=== PATIENT | female | born 1975 | race Caucasian/White ===

== ENCOUNTER 2024-05-20 10:00 | Outpatient (CLI) | payer MEDICAID, SELFPAY ==
[2024-05-20 16:48] LABS: HCG Qualitative,Urine Negative
[2024-06-13 16:37] LABS: HCG Qualitative,Urine Negative
--- NOTE | 2024-06-14 10:00 | XR_ITS ---
Examination: MRI of brain without intravenous contrast. MRI brain with intravenous contrast. Date and time of exam:June 14, 2024 1029 hours INDICATIONS: Acute episode of headaches head pressure blurred vision dizziness April 14, 2024 Technique: Multiple axial and sagittal images of the brain to been obtained. Siemens high-resolution 1.52 Katrin short bore scanner utilized. Sagittal sections, T1 weighted images, TR 500, TE 14, are performed. Axial sections proton-density and T2-weighted images have been obtained. Inversion recovery axial images, TR 9260, TE 111, TR 2500. Diffusion weighted images, axial sections, TR 4800, TE 128, B value 1000. Axial sections, ADC map, TR 4800, TE 128. Axial and coronal images were also obtained post 17 cc gadolinium administered intravenously. Findings:: Enlargement of the sella turcica is not present. The optic chiasm and infundibular stalk are not remarkable. There is no localized enlargement of the medulla or bonnie. Fourth ventricle and cerebellar tonsils appear normal in position. No subacute area of hemorrhage density is seen. Fourth ventricle is midline. Mass in the cerebellopontine angle region is not evident. 7th and 8th nerve complexes exhibit symmetry Globes are symmetrical Orbital musculature including medial lateral rectus muscles do not exhibit abnormality Increased white matter signal is not seen Effacement of the cortical sulcal markings is not identified. Mass effect upon the ventricular system is not identified. Diffusion-weighted images demonstrate no focus of restricted diffusion Contrast images demonstrate no abnormal enhancement Impression: Negative for acute hemorrhage, mass effect or midline shift No acute infarct No MR findings diagnostic for demyelinating disease No abnormal enhancing cerebellar or cerebral lesions
== END 2024-05-20 11:30 | disposition home or self-care (01) ==
LOC: SMRI 06-15 12:43
PROVIDERS: PCP Family Medicine; Referring Provider Family Medicine; Visit Provider Family Medicine
DX: R42 Dizziness and giddiness (principal); Z32.00 Encounter for pregnancy test, result unknown
CPT/HCPCS: 70553; 81025; A9579

== ENCOUNTER 2024-10-26 16:02 | Emergency (ER) | payer MEDICAID, SELFPAY ==
[2024-10-26 16:18] VITALS: BP 118/79; PULSE 87; RESP 20; TEMP 36.8; O2SAT 98
--- NOTE | 2024-10-26 16:20 | XR_ITS ---
Examination: Tibia-Fibula, right , 2 views Technique: Tibia-fibula AP lateral 2 views Date and time of exam: October 26, 2024, 1624 hours INDICATIONS: Twisting injury to the lower leg today, lower leg pain. FINDINGS: No acute fracture. No dislocation. Lateral malleolar soft tissue swelling. IMPRESSION: No acute fracture.
--- NOTE | 2024-10-26 16:20 | XR_ITS ---
EXAMINATION: Ankle, right 3 views . Technique: Ankle AP, oblique, lateral 3 views Date and time of exam: October 26, 2024, 1624 hours INDICATIONS: Twisting injury to the ankle today, ankle pain. FINDINGS: Lateral malleolar soft tissue swelling. No fracture or dislocation. No foreign body. IMPRESSION: No fracture or dislocation.
--- NOTE | 2024-10-26 16:20 | XR_ITS ---
Examination: Foot, right, 3 views Technique: AP, oblique, lateral views foot, 3 views Date and time of exam: October 26, 2024, 1624 hours INDICATIONS: Twisting injury to the foot today, foot pain. FINDINGS: No acute fracture. No dislocation. No foreign body Old deformity distal fifth metatarsal IMPRESSION: No acute fracture
--- NOTE | 2024-10-26 16:23 | EDNOTE_ITS ---
<Statement entered by Tonie Dallas MD - 10/27/24 06:08> As co-signing physician, I was present and available for consult prn. I concur with the plan and care as documented by the midlevel provider. Lower Extremity Injury RME/HPI General Chief Complaint: Ankle/Foot Injury Stated Complaint: RIGHT ANKLE INJURY STEPPING OFF TRAILER Time Seen by Provider: 10/26/24 16:09 Source: patient Arrival date/time: 10/26/24 16:02 49-year-old female with no known medical history presents to the emergency room with a chief complaint of tenderness swelling and bruising to her right ankle after an injury stepping off a trailer that occurred yesterday afternoon. Mode of arrival: ambulatory Limitations: no limitations Related Data Home Medications ?Medication ?Instructions ?Recorded ?Confirmed Unobtainable 09/11/18 09/11/18 Allergies Allergy/AdvReac Type Severity Reaction Status Date / Time No Known Allergies Allergy Verified 10/26/24 16:07 Review of Systems Review of Systems Systems Reviewed: All systems reviewed, normal except as documented Constitutional Constitutional: Reports system reviewed and no additional complaints, except as documented, Denies fatigue, Denies fever(s), Denies headache(s) and Denies weakness Eyes Eyes: Reports system reviewed and no additional complaints, except as documented, Denies blurry vision and Denies change in vision ENT Ears, Nose, Mouth, and Throat: Reports system reviewed and no additional complaints, except as documented, Denies otalgia, Denies headache(s), Denies nasal congestion, Denies throat swelling and Denies vertigo Cardiovascular Cardiovascular: Reports system reviewed and no additional complaints, except as documented, Denies chest pain, Denies dyspnea and Denies dyspnea on exertion Respiratory Respiratory: Reports system reviewed and no additional complaints, except as documented, Denies chest congestion, Denies cough, Denies dyspnea, Denies dyspnea on exertion and Denies wheezing Gastrointestinal Gastrointestinal: Reports system reviewed and no additional complaints, except as documented, Denies abdominal pain, Denies cramping, Denies nausea and Denies vomiting Genitourinary Genitourinary: Reports system reviewed and no additional complaints, except as documented Musculoskeletal Musculoskeletal: Reports system reviewed and no additional complaints, except as documented, Reports arthralgias, Denies back pain, Reports joint swelling and Reports limited range of motion Integumentary/Breasts Skin/Breast: Reports system reviewed and no additional complaints, except as documented and Denies wounds Neurologic Neurologic: Reports system reviewed and no additional complaints, except as documented, Denies confusion, Denies headache(s), Denies lack of coordination, Denies vertigo and Denies weakness Psychiatric Psychiatric: Reports system reviewed and no additional complaints, except as documented, Denies anxiety, Denies confusion, Denies depression, Denies paranoia, Denies suicidal ideation and Denies tactile hallucinations Endocrine Endocrine: Reports system reviewed and no additional complaints, except as documented and Denies fatigue Hematologic/Lymphatic Hematologic/Lymphatic: Reports system reviewed and no additional complaints, except as documented and Denies lymphadenopathy Allergic/Immunologic Allergic/Immunologic: Reports system reviewed and no additional complaints, except as documented, Denies throat swelling, Denies urticaria and Denies wheezing Past Medical History Past Medical History CARDIAC: Negative Congestive Heart Failure RESPIRATORY: Negative Chronic Obstructive Pulmonary Disease (COPD) GENITOURINARY: Negative Renal Disease ENDOCRINE: Negative Diabetes Mellitus Type 1 or Diabetes Mellitus Type 2 PSYCHO/SOCIAL: Positive Schizophrenia and Recreational Drug Use Social History SMOKING STATUS: Never smoker SUBSTANCE USE: marijuana (When I can get my hands on) and amphetamines (When she can get her hands on the substance) ED Exam General Limitations: Present no limitations General appearance: Present alert and in no apparent distress Head Head exam: Present atraumatic Eye Eye exam: Present normal appearance, PERRL and EOMI ENT ENT exam: Present normal exam, normal oropharynx and mucous membranes moist Neck Neck exam: Present normal inspection, full ROM and trachea midline Chest Chest inspection: Present normal inspection and symmetric chest wall rise Respiratory Respiratory exam: Present normal lung sounds bilaterally Cardiovascular Cardiovascular exam: Present regular rate, normal rhythm and normal heart sounds Abdominal Exam Abdominal exam: Present soft and normal bowel sounds Extremities Exam Extremities exam: Present normal inspection and full ROM Expanded Lower Extremity Exam Hip/Pelvis exam: Present normal inspection Upper leg exam: Present normal inspection Knee exam: Present normal inspection Lower leg exam: Present normal inspection Ankle exam: Present tenderness and swelling Foot/toe exam: Present tenderness and swelling Gait: observed and limited by pain Back Exam Back exam: Present normal inspection and full ROM Neurological Exam Neurological exam: Present alert, oriented X3 and CN II-XII intact Psychiatric Psychiatric exam: Present normal affect and normal mood Skin Skin exam: Present warm, dry, intact and normal color Course Quality Measures none Orders Category Date Time Status Crutches .NOW Care 10/26/24 17:26 Ordered billy wrap [Splint / Immobilizer] STAT Care 10/26/24 17:26 Ordered XR ankle comp RT min 3V Stat Exams 10/26/24 16:20 Completed XR foot comp RT min 3V Stat Exams 10/26/24 16:20 Completed XR tibia fibula RT 2V Stat Exams 10/26/24 16:20 Completed Vital Signs Vital signs: Vital Signs Temperature 98.2 F 10/26/24 16:18 Pulse Rate 87 10/26/24 16:18 Respiratory Rate 20 10/26/24 16:18 Blood Pressure 118/79 10/26/24 16:18 Pulse Oximetry (%) 98 10/26/24 16:18 Oxygen Delivery Method Room Air 10/26/24 16:18 Extremity Injury, Lower MDM Narrative MDM Narrative:: 49-year-old female with no known medical history presents to the emergency room with a chief complaint of tenderness swelling and bruising to her right ankle after an injury stepping off a trailer that occurred yesterday afternoon. Patient is hemodynamically stable and in no apparent distress Physical examination shows tenderness and pain to the patient's right ankle right tib-fib as well as the right foot. There is swelling and bruising to the ankle area. X-ray of the ankle tib-fib and foot were completed and were all negative for any acute fractures or dislocations Patient was given crutches and wrapped with an Billy wrap Patient was discharged and educated to follow-up with primary care provider in the next 24 to 48 hours and return to the emergency room for any evidence of worsening signs or symptoms Patient data External records reviewed:: [facility] previous records Clinical information provided by:: patient Social determinants that could affect healthcare access:: none Patient has the following chronic illnesses:: No chronic illness How is presenting disease/condition affected by chronic disease/condition?: no chronic disease Evaluation data The following diagnostics were reviewed and interpreted by me:: lab results and radiology exam(s) Lab and/or radiology exams considered but not ordered:: Labs radiology exams considered and ordered Interpretation Summary: Ankle [id number]: Lateral malleolar soft tissue swelling. No fracture or dislocation. No foreign body. IMPRESSION: No fracture or dislocation. Foot [id number]: No acute fracture. No dislocation. No foreign body Old deformity distal fifth metatarsal IMPRESSION: No acute fracture Medications / Prescriptions Medications or Prescriptions considered but not ordered:: No medication given Medication administrations:: No medication given Consultations Consultation(s) initiated? (list below): No Diagnosis Extremity Injury, Lower Differential Diagnosis: ankle sprain and strain and ankle fracture Most likely diagnosis given after review of the tests above:: Ankle sprain and strain Admission Indicated Admission indicated?: not indicated Admission Request Was there a request for admission?: No Disposition Plan Disposition Plan: Discharge Discharge Attestation Discharge Attestation: The patient and all family members were given an opportunity to ask questions and understood the discharge instructions. Discharge instructions specifically effects, indications for sooner follow up or return to the emergency department, and the expected course of current diagnosis. Patient condition: Stable Discharge Plan Plan Patient Disposition: HOME (Self Care) Discharge Disposition comment: Stable Prescriptions/Referrals Prescriptions/Med Rec: No Action Unobtainable Referrals: No Primary/Family,Physician [Primary Care Provider] - In 1 week Problem List Clinical Impression: Ankle sprain and strain Patient/Caregiver Discharge Instructions Additional Instructions: Please follow-up with your primary care provider in the next 24 to 48 hours X-ray of your ankle and foot were completed and were negative for any acute fracture or dislocation. For any evidence of worsening signs or symptoms return to the emergency room immediately Print Language: Bulgarian Stand Alone Forms: Nyla Award Info., Work/School Release, Patient Portal Info Letter NISHANT/MAHAMED Supervising Physician NISHANT/MAHAMED Supervising Physician: Dr. DALLAS
== END 2024-10-26 18:24 | disposition home or self-care (01) ==
PROVIDERS: Emergency Provider Emergency Medicine
DX: S93.401A Sprain of unspecified ligament of right ankle, initial encounter (principal); X58.XXXA Exposure to other specified factors, initial encounter
CPT/HCPCS: 73590; 73610; 73630; 99283

== ENCOUNTER 2025-01-11 09:31 | Emergency (ER) | payer MEDICAID, SELFPAY ==
[2025-01-11 09:32] VITALS: BMI 30.7
[2025-01-11 09:41] VITALS: BP 147/84; PULSE 63; RESP 18; TEMP 36.8; O2SAT 99
--- NOTE | 2025-01-11 09:55 | PD.EDRME ---
Rapid Medical Screening Exam RME Arrival date/time: 01/11/25 09:31 Chief Complaint: Dizziness Vital signs: Vital Signs Temperature 98.3 F 01/11/25 09:41 Pulse Rate 63 01/11/25 09:41 Respiratory Rate 18 01/11/25 09:41 Blood Pressure 147/84 H 01/11/25 09:41 Pulse Oximetry (%) 99 01/11/25 09:41 Oxygen Delivery Method Room Air 01/11/25 09:41 Pulse ox is 99% room air Vital signs reviewed by provider: Yes RME Narrative: 49-year-old female presents to the ED with complaint of swollen ankles left and right as well as bending over and having a syncopal episode. Patient tells me she has had this happen 3-4 times and she was trying to figure out why she was developing shortness of breath and having a fainting spell.
--- NOTE | 2025-01-11 09:57 | XR_ITS ---
Examination: PA lateral chest 2 views TECHNIQUE: Upright PA lateral chest 2 views Date and time: January 11, 2025 1001 hours Comparison November 04, 2021 INDICATIONS: Chest pain dizziness today. FINDINGS: Normal heart size Lungs are clear. The osseous structures are intact IMPRESSION: No active disease
--- NOTE | 2025-01-11 09:57 | EKG_ITS ---
[facility] Test Date: 2025-01-11 Pat Name: JONA MERCEDES Department: Room: - Gender: Female Acid Maker: : 1975 Requested By: Estuardo Camarena Order Number: [id number] Reading MD: Estuardo Camarena Measurements Intervals [place] Rate: 50 P: TN: QRS: -9 QRSD: 85 T: 24 QT: 424 QTc: 390 Interpretive Statements SINUS BRADYCARDIA WITH 2ND DEGREE AV BLOCK, 2:1 OR MOBITZ TYPE II LOW QRS VOLTAGE IN PRECORDIAL LEADS [QRS DEFLECTION < 1.0 mV IN CHEST LEADS] CRITICAL TEST RESULT No previous ECG available for comparison /store/[email or web address]/[id number].pdf
--- NOTE | 2025-01-11 10:14 | EDNOTE_ITS ---
ED General RME/HPI General Chief complaint: Dizziness Stated complaint: DIZZY, SWOLLEN LEGS Time Seen by Provider: 01/11/25 10:12 Arrival date/time: 01/11/25 09:31 RME / HPI RME / HPI narrative: 49-year-old female presents to the ED with complaint of swollen ankles left and right as well as bending over and having a syncopal episode. Patient tells me she has had this happen 3-4 times and she was trying to figure out why she was developing shortness of breath and having a fainting spell. DR. MATOS MAIN ED EVALUATION 49 year old female presents to the ED for evaluation of dizziness today. States while looking for something in her room she felt slightly short of breath and as she bent down to look under her bed, she felt suddenly felt dizzy and blacked out . Also states she in the last 2-3 days ago she has felt short of breath with chest pressure and bilateral lower extremity swelling with pain (L>R). Reportedly consulted with PCP 2 days ago and had an EKG performed in office as well as labs with follow up appointment scheduled today. Denies any recent travel or prolonged immobilization. Denies fevers, chills, abdominal pain, n/v. Family hx: Cystic fibrosis, mother and father passed from heart related disease Related Data Previous Rx's ?Medication ?Instructions ?Recorded apixaban 5 mg (74 tabs) tablets in 5 mg PO BID #74 tab s 01/11/25 a dose pack (Eliquis DVT-PE Treat 30D Start) Allergies Allergy/AdvReac Type Severity Reaction Status Date / Time No Known Allergies Allergy Verified 01/11/25 09:34 Review of Systems Review of Systems Systems Reviewed: All systems reviewed, normal except as documented Past Medical History Past Medical History RESPIRATORY: Positive Asthma PSYCHO/SOCIAL: Positive Schizophrenia, Recreational Drug Use and Bipolar Disorder Social History SMOKING STATUS: Former smoker SUBSTANCE USE: marijuana (When I can get my hands on) and amphetamines (When she can get her hands on the substance) ED Exam Narrative Physical exam: Constitutional: Awake, alert, nontoxic, no acute distress HEENT: NC, AT, EOMI Neck: Supple CV: RRR, no m/r/g Lungs: CTAB, no w/r/r, no respiratory distress. Abd: Soft, NT, NT, no HSM noted to palpation Extremities: No deformities, 1=2+ pitting edema left lower extremity, pain to calf bilaterally Neuro: AAOx3, CN 2-12 GIBL, no acute neuro deficit noted. Skin: Warm, dry, intact Course Course Course Narrative: 1140h: Venous duplex results reviewed. Does appear to have bilateral DVTs. CT angio is pending to evaluate for presence of PE as well. Patient currently remains vitally stable, no hypoxia or tachycardia. PESI score low risk. Dose of apixaban [address] angio was negative for PE. Patient vitally stable, no hypoxia, no shortness of breath. Was given initial dose of apixaban here and prescription for home. Stable for discharge. Advised on outpatient follow-up with PCP. Quality Measures none Orders Category Date Time Status CT Screening NOW Care 01/11/25 10:22 Completed EKG (ED ONLY) *Do not use* NOW Care 01/11/25 09:57 Completed Insert IV NOW Care 01/11/25 10:[address] angio chest Stat Exams 01/11/25 10:22 Completed EKG (ED Only) Stat Exams 01/11/25 09:57 Draft US venous duplex LE BI Stat Exams 01/11/25 10:26 Completed XR chest 2V Stat Exams 01/11/25 09:57 Completed B-Type Natriuretic Peptide Stat Lab 01/11/25 10:10 Completed CBC Stat Lab 01/11/25 10:10 Completed Comprehensive Metabolic Panel Stat Lab 01/11/25 10:10 Completed Drug Screen,Urine Stat Lab 01/11/25 11:45 Completed HCG,Qualitative Serum Stat Lab 01/11/25 10:10 Completed LDH (Lactate Dehydrogenase) Stat Lab 01/11/25 10:10 Completed Magnesium Stat Lab 01/11/25 10:10 Completed Partial Thromboplastin Time Stat Lab 01/11/25 10:10 Completed Prothrombin Time with INR Stat Lab 01/11/25 10:10 Completed Troponin I Stat Lab 01/11/25 10:10 Completed Urinalysis Stat Lab 01/11/25 11:57 Completed Apixaban [Eliquis] Med 01/11/25 11:39 Discontinued 10 mg PO X1 ONE Vital Signs Vital signs: Vital Signs Temperature 98.3 F 01/11/25 09:41 Pulse Rate 63 01/11/25 09:41 Respiratory Rate 18 01/11/25 09:41 Blood Pressure 147/84 H 01/11/25 09:41 Pulse Oximetry (%) 99 01/11/25 09:41 Oxygen Delivery Method Room Air 01/11/25 09:41 Pulse ox is 99% on room air which is adequate. Critical Care Time Critical Care Time Critical Care Time: No Discharge Plan Plan Patient Disposition: HOME (Self Care) Patient condition on transfer: Stable Prescriptions/Referrals Prescriptions/Med Rec: [place] DVT-PE Treat 30D Start 5 mg (74 tabs) tablets,dose pack 5 mg PO BID Qty: 74 0RF Rx Instructions: Take 10mg (2 tab) twice daily for 7 days, then take 5mg (1 tab) twice daily thereafter. Referrals: Dante Bruce MD [Primary Care Provider] - In 1 week Problem List Clinical Impression: Acute bilateral deep vein thrombosis (DVT) of popliteal veins Patient/Caregiver Discharge Instructions Education Materials: Apixaban oral tablets, ED Deep Vein Thrombosis (DVT) Print Language: Grenadian Stand Alone Forms: Nyla Award Info., Patient Portal Info Letter MDM Narrative [facility] hospital course: IAlondra am scribing for and in the presence of Dr. Matos. Clinical Information Provided by none Medical Records Reviewed [facility] (I reviewed ED visit on 10/26/2024 ) Meds/Rx Considered, not Ordered None Labs/Rad/Tests considered, not Ordered None Chronic Illness/Social Conditions which may negatively complicate care or outcome(s)-explain: None or not appl icable EKG Interpretation EKG #1: Date/time of EK01/11/25 10:21 am EKG interpretation: Sinus bradycardia, rate 50, no STEMI Lab Interpretation Labs: see narrative above Imaging Radiology reports / interpretation(s): Ordering Physician: Estuardo Gr PA-C Date of Service: 01/11/25 Procedure(s): XR chest 2V Accession Number(s): [id number] cc: Dante Bruce MD; Shamar Lerner MD; Estuardo Gr PA-C~ Examination: PA lateral chest 2 views TECHNIQUE: Upright PA lateral chest 2 views Date and time: January 11, 2025 1001 hours Comparison November 04, 2021 INDICATIONS: Chest pain dizziness today. FINDINGS: Normal heart size Lungs are clear. The osseous structures are intact IMPRESSION: No active disease Dictated By: Shamar Lerner MD Signed By: <Electronically signed by Shamar Lerner MD in OV> 01/11/25 1100 Ordering Physician: Zora Matos MD Date of Service: 01/11/25 Procedure(s): US venous duplex LE BI Accession Number(s): [id number] cc: Dante rBuce MD; Shamar Lerner MD; Zora Matos MD~ Examination: Venous duplex lower extremity sonogram, bilateral. Date and time of exam: January 11, 2025 1052 hours INDICATIONS: Bilateral leg swelling and pain beginning 3 days ago Technique: Multiple sonographic images of the deep venous system have been obtained. B-mode/2-D grayscale imaging of vascular structures and Doppler spectral analysis (waveforms) and color performed Both legs are examined. Findings: Positive for nonocclusive thrombus involving the right and left popliteal and peroneal veins Remaining deep venous systems are open IMPRESSION: Positive for nonocclusive acute thrombus in the right and left popliteal and peroneal veins Dictated By: Shamar Lerner MD Signed By: <Electronically signed by Shamar Lerner MD in OV> 01/11/25 1133 Ordering Physician: Zora Matos MD Date of Service: 01/11/25 Procedure(s): CT angio chest Accession Number(s): [id number] cc: Dante Bruce MD; Shamar Lerner MD; Zora Matos MD~ Examination: CTA chest with intravenous contrast 2-D reconstructions 3-D reconstructions, vascular Date and time of exam: January 11, 2025 1225 hours INDICATIONS: Onset chest pain shortness of breath today CTDI: vol (mGy) 18.7 DLP: (mGycm) 314 Technique: Multiple axial sections of the thorax have been obtained. 3 mm slice thickness, from below the hemidiaphragms to above the apices of the lungs. Mediastinal and lung density settings have been obtained. 2-D sagittal and coronal reconstructions. 3-D angiographic renderings, 3-D volume renderings, 3D post processing, vascular maximum intensity projections obtained. Contrast administered is 100 cc Isovue-370. Low dose protocols were performed. One or more of the following dose reduction techniques were used; automated exposure control, adjustment of the mA and/or KV according to patient size, use of iterative reconstruction technique. Findings: No thoracic aortic aneurysm dilatation or dissection Pulmonary artery segments are not enlarged No pulmonary artery emboli No pneumonia or pulmonary edema or pleural disease No visualized liver or splenic lesion No gallstones noted Kidneys partially visualized no hydronephrosis Chronic osteoporotic compression T10 IMPRESSION: Negative for pulmonary artery emboli No pneumonia pulmonary edema or pleural disease Dictated By: Shamar Lerner MD Signed By: <Electronically signed by Shamar Lerner MD in OV> 01/11/25 1248 Medication Administration(s) Medication Administration History Discontinued Medications Apixaban (Apixaban 2.5 Mg Tablet) 10 mg PO X1 ONE Stop: 01/11/25 11:40 Last Admin: 01/11/25 11:56 Dose: 10 mg Documented By: VG See above Diagnosis Most likely dx, and/or detailed dx discussion: Acute bilateral DVT of popliteal veins Dispositon Disposition: Discharge Home
--- NOTE | 2025-01-11 10:22 | XR_ITS ---
Examination: CTA chest with intravenous contrast 2-D reconstructions 3-D reconstructions, vascular Date and time of exam: January 11, 2025 1225 hours INDICATIONS: Onset chest pain shortness of breath today CTDI: vol (mGy) 18.7 DLP: (mGycm) 314 Technique: Multiple axial sections of the thorax have been obtained. 3 mm slice thickness, from below the hemidiaphragms to above the apices of the lungs. Mediastinal and lung density settings have been obtained. 2-D sagittal and coronal reconstructions. 3-D angiographic renderings, 3-D volume renderings, 3D post processing, vascular maximum intensity projections obtained. Contrast administered is 100 cc Isovue-370. Low dose protocols were performed. One or more of the following dose reduction techniques were used; automated exposure control, adjustment of the mA and/or KV according to patient size, use of iterative reconstruction technique. Findings: No thoracic aortic aneurysm dilatation or dissection Pulmonary artery segments are not enlarged No pulmonary artery emboli No pneumonia or pulmonary edema or pleural disease No visualized liver or splenic lesion No gallstones noted Kidneys partially visualized no hydronephrosis Chronic osteoporotic compression T10 IMPRESSION: Negative for pulmonary artery emboli No pneumonia pulmonary edema or pleural disease
--- NOTE | 2025-01-11 10:26 | XR_ITS ---
Examination: Venous duplex lower extremity sonogram, bilateral. Date and time of exam: January 11, 2025 1052 hours INDICATIONS: Bilateral leg swelling and pain beginning 3 days ago Technique: Multiple sonographic images of the deep venous system have been obtained. B-mode/2-D grayscale imaging of vascular structures and Doppler spectral analysis (waveforms) and color performed Both legs are examined. Findings: Positive for nonocclusive thrombus involving the right and left popliteal and peroneal veins Remaining deep venous systems are open IMPRESSION: Positive for nonocclusive acute thrombus in the right and left popliteal and peroneal veins
[2025-01-11 10:29] LABS: Basophils # (Auto) 0.0 Thou/mm3 (0.0-0.2); Basophils % (Auto) 0 % (0-2.5); Eosinophils # (Auto) 0.1 Thou/mm3 (0.0-0.5); Eosinophils % (Auto) 1 % (0-10); Hematocrit 40.1 % (36.0-46.0); Hemoglobin 13.1 g/dL (12.0-16.0); Immature Granulocytes Auto 0.02 Thou/mm3 (0.00-0.00); Lymphocytes # (Auto) 1.5 Thou/mm3 (1.0-4.8); Lymphocytes % (Auto) 21 % (10-50); Mean Corpuscular HGB Conc 32.7 g/dl (31.0-37.0); Mean Corpuscular Hemoglobin 28.5 pg (25.0-35.0); Mean Corpuscular Volume 87 fL (80-100); Monocytes # (Auto) 0.3 Thou/mm3 (0.0-0.8); Monocytes % (Auto) 4 % (0-12); Neutrophils # (Auto) 4.9 Thou/mm3 (1.8-7.7); Neutrophils % (Auto) 73 % (37-80); Nucleated Red Blood Cell # 0.00 Thou/mm3 (0.00-0.00); Nucleated Red Blood Cell % 0 /100 WBC (0); Platelet Count 317 Thou/mm3 (140-440); RDW Standard Deviation 44.9 fL (36.4-46.3); Red Blood Count 4.59 Miln/mm3 (4.00-5.20); White Blood Count 6.8 Thou/mm3 (3.6-11.0)
[2025-01-11 10:45] LABS: INR 1.0 (0.9-1.3); Partial Thromboplastin Time 26.0 Seconds (22.0-36.0); Prothrombin Time 11.4 Seconds (9.0-12.2)
[2025-01-11 10:47] LABS: B-Type Natriuretic Peptide 57 pg/mL (0-100)
[2025-01-11 10:50] LABS: Alanine Aminotransferase 10 U/L (10-49); Albumin, Serum 4.5 gm/dL (3.5-5.0); Albumin/Globulin Ratio 2.1 (1.2-2.2); Alkaline Phosphatase 87 U/L (46-116); Anion Gap 6 (7-16); Aspartate Amino Transferase 16 U/L (0-34); BUN/Creatinine Ratio 6 Ratio (12-20); Bilirubin,Total 0.5 mg/dL (0.3-1.2); Blood Urea Nitrogen 6 mg/dL (9-23); Calcium 10.0 mg/dL (8.3-10.6); Calcium (Corrected) 10.0 mg/dL (8.5-10.1); Carbon Dioxide 28.9 mMol/L (20.0-31.0); Chloride 106 mMol/L (98-107); Creatinine (Component) 1.0 mg/dL (0.6-1.3); Estimated Creatinine Clearance 71.2 mL/min (>60); Globulin 2.1 gm/dL (2.3-3.5); Glucose 119 mg/dL (74-106); LDH (Lactate Dehydrogenase) 207 U/L (120-246); Magnesium 1.7 mg/dL (1.6-2.6); Osmolality,Calculated 279 (275-295); Potassium 4.6 mMol/L (3.4-5.1); Sodium 141 mMol/L (136-145); Total Protein 6.6 gm/dL (5.7-8.2); Troponin I < 0.002 ng/mL (0.0-0.045); eGFR > 60 See Note
--- NOTE | 2025-01-11 10:51 | PC.NURSE ---
pt taken to [facility]
[2025-01-11 11:25] VITALS: BP 161/80; PULSE 50; RESP 14; TEMP 36.7; O2SAT 100
[2025-01-11] MEDS: APIXABAN 2.5 MG TABLET 10 MG PO (11:56)
[2025-01-11 11:59] LABS: HCG,Qualitative Serum Negative
[2025-01-11 12:14] LABS: Collection Type, Urine Clean Catch
[2025-01-11 12:21] LABS: Bilirubin,Urine Negative (Negative); Blood,Urine Trace (Negative); Clarity,Urine Clear (Clear/Hazy); Color,Urine Colorless (Lt Yel-Yel); Glucose, Urine Negative (Negative); Ketones,Urine Negative (Negative); Leukocyte Esterase,Urine Negative (Negative); Nitrite,Urine Negative (Negative); PH,Urine 8.0 (5.0-7.0); Protein,Urine Negative (Neg - Trace); RBC,Urine < 1 /hpf (0-3); Specific Gravity,Urine 1.005 (1.001-1.035); Squamous Epithelial Cell,Urine 2 /hpf (0-5); Urobilinogen,Urine Negative mg/dL (0.0-1.0); WBC,Urine < 1 /hpf (0-5)
[2025-01-11 12:33] LABS: Amphetamine/Methamp Scrn,U Negative (Negative); Barbiturate Screen,Urine Negative (Negative); Benzodiazepines Screen,Urine Negative (Negative); Benzoylecgonine Screen, Ur Negative (Negative); Fentanyl Screen,Urine Negative (Negative); Opiate Screen,Urine Negative (Negative); THC Screen,Urine Positive (Negative)
[2025-01-11 13:44] VITALS: BP 165/87; PULSE 61; RESP 17; O2SAT 98
== END 2025-01-11 14:25 | disposition home or self-care (01) ==
PROVIDERS: Physician Assistant; Emergency Provider Family Medicine; PCP Family Medicine
DX: I82.433 Acute embolism and thrombosis of popliteal vein, bilateral (principal); R06.02 Shortness of breath; R07.89 Other chest pain
CPT/HCPCS: 36415; 71046; 71275; 80053; 80307; 81001; 83615; 83735; 83880; 84484; 84703; 85025; 85610; 85730; 93005; 93970; 99284; A4649; Q9967; A9270

== ENCOUNTER 2025-04-19 11:45 | Emergency (ER) | payer MEDICAID, SELFPAY ==
[2025-04-19 11:53] VITALS: BP 149/86; PULSE 76; RESP 16; TEMP 36.8; O2SAT 97; BMI 26.8
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
[2025-04-19 12:47] LABS: Collection Type, Urine Clean Catch
--- NOTE | 2025-04-19 13:03 | PC.NURSE ---
PT GOT UPSET BECAUSE I WAS HELPING ANOTHER PT AND SHE WANTED TO BE SEEN BY A DOCTOR RIGHT THEM. I TOLD HER I WOULD HELP HER AFTER I WAS FINISHED WITH THE OTHER PT. SHE WALKED OUT THE ED DOORS STATING, I GUESS I'M DONE HERE THEN. PT ELOPED.
--- NOTE | 2025-04-19 13:10 | PC.NURSE ---
PT RETURNED AND IS WAITING TO BE SEEN.
[2025-04-19 13:11] LABS: Bacteria,Urine 1+; Bilirubin,Urine 1+ (Negative); Blood,Urine 2+ (Negative); Calcium Oxalate Crystals,Urine 2+; Color,Urine Yellow (Lt Yel-Yel); Glucose, Urine Trace (Negative); Ketones,Urine Trace (Negative); Leukocyte Esterase,Urine Positive (Negative); Nitrite,Urine Negative (Negative); PH,Urine 5.5 (5.0-7.0); Protein,Urine 1+ (Neg - Trace); RBC,Urine 90 /hpf (0-3); Specific Gravity,Urine 1.032 (1.001-1.035); Squamous Epithelial Cell,Urine 5 /hpf (0-5); Urobilinogen,Urine 3.0 mg/dL (0.0-1.0); WBC,Urine 485 /hpf (0-5)
[2025-04-19 13:16] LABS: Amphetamine/Methamp Scrn,U Negative (Negative); Barbiturate Screen,Urine Negative (Negative); Benzodiazepines Screen,Urine Positive (Negative); Benzoylecgonine Screen, Ur Negative (Negative); Fentanyl Screen,Urine Negative (Negative); Opiate Screen,Urine Negative (Negative); THC Screen,Urine Positive (Negative)
[2025-04-19 13:19] LABS: Clarity,Urine Cloudy (Clear/Hazy); Culture Indicated,Urine Yes
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
--- NOTE | 2025-04-19 13:47 | PC.NURSE ---
NAx1 at 1345 for medication and dispo.
--- NOTE | 2025-04-19 13:57 | PD.EDADDENDU ---
Emergency Room Addendum Addendum Narrative: Patient came back to the emergency room, I spoke with her regarding her ultrasound results and urinalysis results. Patient received ceftriaxone IM in the emergency room and she is discharged home stable.
[2025-04-19 17:24] LABS: Chlamydia trachomatis PCR Negative (Not Detect); Neisseria Gonorrhoeae DNA PCR Negative (Not Detect); Trichomonas Positive (Negative)
== END 2025-04-19 14:05 | disposition home or self-care (01) ==
PROVIDERS: Nurse Practitioner Family; Emergency Provider Family Medicine; PCP Family Medicine
DX: N39.0 Urinary tract infection, site not specified (principal)
CPT/HCPCS: 76856; 80053; 80307; 80320; 81001; 82248; 83690; 85025; 85610; 85730; 87086; 87491; 87591; 87661; 96372; 99283; J0696; J3490; G0480